=== PATIENT | female | born 1995 | race Caucasian/White ===

== ENCOUNTER 2018-11-21 23:08 | Emergency (ER) | payer OTHER ==
[2015-11-14 14:15] VITALS: Wt 68.0 kg
[~2018-11-21 23:08] MED LIST: CEPH-13 PO; FERR159T PO; LAMO25TB7 PO; ONDA4TAB97 PO; POLY17PO25 PO; QUET100T29 PO; VENL37.594 PO
--- NOTE | 2018-11-21 23:34 | ER Report ---
History and Physical Time Seen By MD: 23:23 Hx. of Stated Complaint: PT STATES SHE HAS BEEN VOMITING FOR THE LAST 3 DAYS. SHE WANTS MEDICINE FOR THAT AND TO HELP INCREASE HER ENERGY HPI/ROS CHIEF COMPLAINT: Nausea and vomiting during HISTORY OF PRESENT ILLNESS: This is a 23-year-old female. She is about 9 weeks . Has been having ongoing problems with nausea and vomiting, somewhat worse today. The last 2 days she has not had much to eat or drink and is feeling dehydrated. Feels weak or energy level. She is hoping to get something to help with the dehydration and with the vomiting tonight. She denies any fevers or chills. No vaginal bleeding. Has no abdominal pain. Describes a little bit of increased discharge recently. Has an appointment set up with [facility]. No problems with bowels. She denies dysuria or urinary frequency. Allergies: Coded Allergies: No Known Drug Allergies (Unverified , 11/14/15) Home Meds Active Scripts Ondansetron 4 Mg Odt (ONDANSETRON 4 MG ODT) 4 Mg Tab.rapdis, 4 MG PO Q6H PRN for NAUSEA/VOMITING, #20 TAB 0 Refills Prov:BRANDON DOAN MD 11/22/18 Polyethylene Glycol 3350 (MIRALAX) 17 Gm Powd.pack, 17 GM PO DIRECTED, #20 PKT Prov:MORE GROVES MD 11/21/16 Reported Medications Venlafaxine Hcl (EFFEXOR XR) 37.5 Mg Cap.er.24h, 37.5 MG PO QDAY 11/14/15 Quetiapine Fumarate (SEROQUEL) 100 Mg Tablet, 100 MG PO QHS 11/14/15 Reviewed Nurses Notes: Yes Hx Smoking: No Smoking Status: Never Smoker Hx Substance Use Disorder: No Hx Alcohol Use: No Constitutional Vital Sign - Last 24 Hours 11/21/18 11/21/18 11/22/18 11/22/18 23:13 23:30 00:00 00:30 Temp 97.8 Pulse 77 77 64 62 Resp 16 B/P (MAP) 108/67 110/71 (84) 102/66 (78) 95/60 (72) Pulse Ox 94 93 92 94 O2 Delivery Room Air Intake and Output 11/21/18 11/21/18 11/22/18 15:00 23:00 07:00 Intake Total 1500 ml Balance 1500 ml Physical Exam General Appearance: Alert, no acute distress. Eyes: Pupils equal and round no injection. ENT: Normal oral mucosa. Moist mucous membranes. Respiratory: Lungs are clear to auscultation. Cardiac: regular rate and rhythm Gastrointestinal: Abdomen is soft, nontender, normal bowel sounds. No CVA tenderness. DIFFERENTIAL DIAGNOSIS: After history and physical exam differential diagnosis was considered for patient with nausea and vomiting that sounds like it's associated with to somewhat worse with some dehydration. We'll need to rule out urinary tract infection as well. Medical Decision Making Data Points Result Diagram: 11/21/18 2342 11/21/18 2342 Laboratory Hematology Test 11/21/18 23:16 11/21/18 23:42 Urine Color Latisha Urine Clarity Cloudy Urine pH 5.0 pH (4.8-9.5) Urine Specific [place] 1.024 Urine Protein Negative mg/dL (NEGATIVE) Urine Glucose (UA) Negative mg/dL (NEGATIVE) Urine Ketones Trace mg/dL (NEGATIVE) Urine Blood Negative (NEGATIVE) Urine Nitrite Negative (NEGATIVE) Urine Bilirubin Negative (NEGATIVE) Urine Urobilinogen Negative mg/dL (0.2-1.9) Urine Leukocyte Esterase Large (NEGATIVE) Urine RBC 8 /HPF (0-2/HPF) Urine WBC 63 /HPF (0-5/HPF) Urine WBC Clumps Mod /HPF Urine Squamous Epithelial Cells Many /LPF (</=FEW) Urine Bacteria Many /HPF (NONE-FEW) Urine Mucus Few /HPF (NONE-FEW) Red Blood Count 5.68 M/uL (4.17-5.56) Mean Corpuscular Volume 66.5 fL (80.0-96.0) Mean Corpuscular Hemoglobin 21.4 pg (26.0-33.0) Mean Corpuscular Hemoglobin Concent 32.2 g/dL (32.0-36.0) Red Cell Distribution Width 15.0 % (11.5-14.5) Mean Platelet Volume 10.3 fL (7.2-11.1) Neutrophils (%) (Auto) 78.7 % (39.4-72.5) Lymphocytes (%) (Auto) 13.4 % (17.6-49.6) Monocytes (%) (Auto) 5.6 % (4.1-12.4) Eosinophils (%) (Auto) 0.8 % (0.4-6.7) Basophils (%) (Auto) 1.5 % (0.3-1.4) Nucleated RBC Relative Count (auto) 0.0 /100WBC Neutrophils # (Auto) 7.0 K/uL (2.0-7.4) Lymphocytes # (Auto) 1.2 K/uL (1.3-3.6) Monocytes # (Auto) 0.5 K/uL (0.3-1.0) Eosinophils # (Auto) 0.1 K/uL (0.0-0.5) Basophils # (Auto) 0.1 K/uL (0.0-0.1) Nucleated RBC Absolute Count (auto) 0.00 K/uL Peripheral Blood Smear Yes Y/N Sodium Level 137 mmol/L (137-145) Potassium Level 3.5 mmol/L (3.5-5.0) Chloride Level 105 mmol/L (98-107) Carbon Dioxide Level 19 mmol/L (22-31) Blood Urea Nitrogen 9 mg/dl (7-18) Creatinine 0.50 mg/dl (0.52-1.04) Glomerular Filtration Rate Calc > 60.0 Random Glucose 87 mg/dl (75-110) Calcium Level 9.0 mg/dl (8.4-10.2) Total Bilirubin 0.3 mg/dl (0.2-1.3) Aspartate Amino Transf (AST/SGOT) 15 U/L (0-35) Alanine Aminotransferase (ALT/SGPT) 21 U/L (0-56) Alkaline Phosphatase 62 U/L (0-126) Total Protein 7.4 g/dl (6.3-8.2) Albumin 4.3 g/dl (3.5-5.0) Chemistry Test 11/21/18 23:16 11/21/18 23:42 Urine Color Latisha Urine Clarity Cloudy Urine pH 5.0 pH (4.8-9.5) Urine Specific [place] 1.024 Urine Protein Negative mg/dL (NEGATIVE) Urine Glucose (UA) Negative mg/dL (NEGATIVE) Urine Ketones Trace mg/dL (NEGATIVE) Urine Blood Negative (NEGATIVE) Urine Nitrite Negative (NEGATIVE) Urine Bilirubin Negative (NEGATIVE) Urine Urobilinogen Negative mg/dL (0.2-1.9) Urine Leukocyte Esterase Large (NEGATIVE) Urine RBC 8 /HPF (0-2/HPF) Urine WBC 63 /HPF (0-5/HPF) Urine WBC Clumps Mod /HPF Urine Squamous Epithelial Cells Many /LPF (</=FEW) Urine Bacteria Many /HPF (NONE-FEW) Urine Mucus Few /HPF (NONE-FEW) White Blood Count 9.0 k/uL (4.5-11.0) Red Blood Count 5.68 M/uL (4.17-5.56) Hemoglobin 12.2 g/dL (12.0-16.0) Hematocrit 37.8 % (34.0-47.0) Mean Corpuscular Volume 66.5 fL (80.0-96.0) Mean Corpuscular Hemoglobin 21.4 pg (26.0-33.0) Mean Corpuscular Hemoglobin Concent 32.2 g/dL (32.0-36.0) Red Cell Distribution Width 15.0 % (11.5-14.5) Platelet Count 220 K/uL (150-450) Mean Platelet Volume 10.3 fL (7.2-11.1) Neutrophils (%) (Auto) 78.7 % (39.4-72.5) Lymphocytes (%) (Auto) 13.4 % (17.6-49.6) Monocytes (%) (Auto) 5.6 % (4.1-12.4) Eosinophils (%) (Auto) 0.8 % (0.4-6.7) Basophils (%) (Auto) 1.5 % (0.3-1.4) Nucleated RBC Relative Count (auto) 0.0 /100WBC Neutrophils # (Auto) 7.0 K/uL (2.0-7.4) Lymphocytes # (Auto) 1.2 K/uL (1.3-3.6) Monocytes # (Auto) 0.5 K/uL (0.3-1.0) Eosinophils # (Auto) 0.1 K/uL (0.0-0.5) Basophils # (Auto) 0.1 K/uL (0.0-0.1) Nucleated RBC Absolute Count (auto) 0.00 K/uL Peripheral Blood Smear Yes Y/N Glomerular Filtration Rate Calc > 60.0 Calcium Level 9.0 mg/dl (8.4-10.2) Total Bilirubin 0.3 mg/dl (0.2-1.3) Aspartate Amino Transf (AST/SGOT) 15 U/L (0-35) Alanine Aminotransferase (ALT/SGPT) 21 U/L (0-56) Alkaline Phosphatase 62 U/L (0-126) Total Protein 7.4 g/dl (6.3-8.2) Albumin 4.3 g/dl (3.5-5.0) Urinalysis Test 11/21/18 23:16 Urine Color Latisha Urine Clarity Cloudy Urine pH 5.0 pH (4.8-9.5) Urine Specific [place] 1.024 Urine Protein Negative mg/dL (NEGATIVE) Urine Glucose (UA) Negative mg/dL (NEGATIVE) Urine Ketones Trace mg/dL (NEGATIVE) Urine Blood Negative (NEGATIVE) Urine Nitrite Negative (NEGATIVE) Urine Bilirubin Negative (NEGATIVE) Urine Urobilinogen Negative mg/dL (0.2-1.9) Urine Leukocyte Esterase Large (NEGATIVE) Urine RBC 8 /HPF (0-2/HPF) Urine WBC 63 /HPF (0-5/HPF) Urine WBC Clumps Mod /HPF Urine Squamous Epithelial Cells Many /LPF (</=FEW) Urine Bacteria Many /HPF (NONE-FEW) Urine Mucus Few /HPF (NONE-FEW) ED Course/Re-evaluation Clinical Indication for ER IV: Hydration, IV Access ED Course Patient felt better after 2 L of IV fluids and some Zofran for nausea. Also gave a little bit of Tylenol for headache. Home with Zofran for nausea as needed and recommended starting some vitamin B6 or using some Benadryl if needed as well. Urine culture pending. Decision to Disposition Date: Nov 22, 2018 Decision to Disposition Time: 01:20 Depart Departure Latest Vital Signs Vital Signs Date Time Temp Pulse Resp B/P (MAP) Pulse Ox O2 Delivery O2 Flow Rate FiO2 11/22/18 00:30 62 95/60 (72) 94 11/21/18 23:13 97.8 16 Room Air Impression: Primary Impression: Nausea and vomiting during Condition: Improved Disposition: HOME OR SELF-CARE New Scripts Ondansetron 4 Mg Odt (ONDANSETRON 4 MG ODT) 4 Mg Tab.rapdis 4 MG PO Q6H PRN for NAUSEA/VOMITING, #20 TAB 0 Refills Prov: BRANDON DOAN MD 11/22/18 Patient Instructions: Nausea and Vomiting in (ED) Additional Instructions: Take Zofran 4mg, one every 6 hours as needed for nausea or vomiting. Take Tylenol as needed for headache. You can try taking Vitamin B6 for vomiting during . You can try taking Benadryl 25mg every 6 hours as needed for vomiting during . [facility]-up with [facility] as planned for further care. BRNADON DOAN MD Nov 21, 2018 23:33
[2018-11-21] MEDS ORDERED: ONDANSETRON 4 MG/2 ML VIAL IVP ONE (23:35)
[2018-11-21] MEDS ORDERED: NS(*) 0.9% 1000 ML BAG 1,000 ML IV ONE (23:35)
[2018-11-21 23:56] LABS: PLATELET COUNT, AUTOMATED 220 K/uL (150-450)
[2018-11-22 00:30] VITALS: BP 95/60
[2018-11-22] MEDS ORDERED: ACETAMINOPHEN 500 MG TAB PO ONE (00:35)
[2018-11-22] MEDS ORDERED: NS(*) 0.9% 1000 ML BAG 1,000 ML IV ONE (00:35)
[2018-11-22] MEDS ORDERED: ONDA4TAB9 PO (01:21)
== END 2018-11-22 01:47 | disposition home or self-care (01) ==
LOC: ER 23:15
DX: O21.9 Vomiting of pregnancy, unspecified (principal); Z3A.09 9 weeks gestation of pregnancy
CPT/HCPCS: 81001; 85025; 87088; 96361; 96374; 99283; J2405; J7030; 82040; 82247; 82310; 82374; 82435; 82565; 82947; 84075; 84132; 84155; 84295; 84450; 84460; 84520